=== PATIENT | male | born 1970 | race Caucasian/White ===

== ENCOUNTER 2017-03-16 07:22 | Emergency (ER) | payer OTHER ==
[~2017-03-16] VITALS: Ht 162.6 cm; Wt 70.5 kg
[~2017-03-16 07:22] MED LIST: ACID REDUCER C1 EACH PO; ASPIR-LOW81 M1 PO; ASPIRIN325 MG PO; DENIES MEDICATIONS; DOXYCYCLINE HY100 MG PO; ENDOCET 5-3251 EACH PO; EQUATE1 EACH MC; HYDROCODON-ACE1 EAC7 PO; IBUPROFEN800 MG PO; MOTRIN600 MG PO; MOTRIN800 MG PO; NAPROSYN500 MG PO; NAPROXEN500 MG PO; NOHOMEMEDS; NORCO 7.5/321 TABLET PO; OXYCODONE; PERCOCET 5/31 TABLET PO; PRILOSEC40 MG PO; PROAIR HFA8.5 GM IH; TYLENOL 8 HOUR650 MG PO; ZOLPIDEM TARTRAT5 MG PO
[2017-03-16 07:56] LABS: ADD MIUA? YES; BILIRUBIN NEGATIVE; BLOOD MODERATE; COLOR YELLOW ((YELLOW)); GLUCOSE (STRIP) NEGATIVE; KETONES NEGATIVE; LEUKOCYTES NEGATIVE; NITRITE NEGATIVE; PROTEIN (STRIP) >=500; SPECIFIC GRAVITY 1.013 (1.000-1.030); UROBILINOGEN 0.2 MG/DL (0.2-1.0)
[2017-03-16 08:05] LABS: BACTERIA NONE SEEN /HPF; EPITHELIAL CELLS NONE SEEN /HPF; HYALINE CASTS 0-5 /LPF; MUCUS NONE SEEN /LPF; WHITE BLOOD CELLS 0-5 /HPF (0-5)
[2017-03-16 08:26] LABS: MCH 30.7 PG (29.0-34.0); MCHC 34.1 G/DL (30.0-36.0); MCV 90.1 FL (86-99); MEAN PLAT.VOLUME 9.6 uM^3 (9.0-12.4); PLATELET COUNT 200 K/uL (156-360); RBC DIS.WIDTH-CV 13.5 % (11.8-14.6); RED BLOOD COUNT 3.55 M/uL (4.00-5.50); WHITE BLOOD COUNT 7.6 K/uL (4.1-10.2)
[2017-03-16 08:36] LABS: CHLORIDE 108 mEq/L (99-109); POTASSIUM 4.3 mEq/L (3.7-5.4); SODIUM 138 mEq/L (136-147)
[2017-03-16 08:39] LABS: GLUCOSE 95 mg/dL (70-99)
[2017-03-16 08:40] LABS: ANION GAP 6 MEQ/L (2-14)
[2017-03-16 08:41] LABS: TOTAL BILIRUBIN 0.3 mg/dL (0.0-1.0)
[2017-03-16 08:42] LABS: ALKALINE PHOSPHATASE 66 IU/L (3-129); GFR ESTIMATE (CALCULATED) > 59 mL/min/
[2017-03-16 08:44] LABS: UREA NITROGEN (BUN) 18 mg/dL (9-23)
[2017-03-16] MEDS ORDERED: VENTOLIN HFA18 GM IH (09:33)
[2017-03-16 09:35] VITALS: BP 148/97
== END 2017-03-16 09:36 | disposition home or self-care (01) ==
LOC: EME 07:22
PROVIDERS: Physician Assistant
DX: R80.9 Proteinuria, unspecified (principal); D64.9 Anemia, unspecified; M25.472 Effusion, left ankle; M25.471 Effusion, right ankle; J45.909 Unspecified asthma, uncomplicated; K21.9 Gastro-esophageal reflux disease without esophagitis; F17.200 Nicotine dependence, unspecified, uncomplicated
CPT/HCPCS: 71010; 80053; 81003; 85027; 99281; 99284